=== PATIENT | female | born 1950 | race Caucasian/White ===

== ENCOUNTER 2021-12-19 14:50 | Observation (INO) | payer MEDICARE, OTHER ==
[~2021-12-19 14:50] MED LIST: Sodium Chloride 0.9% 1,000 ML ONE
[2021-12-19] MEDS ORDERED: Sodium Chloride 0.9% 1,000 ML IV ONE (15:00)
[2021-12-19] MEDS ORDERED: Metoprolol Succinate 25 MG Tab.ER PO ONE (16:04)
[2021-12-19] MEDS ORDERED: Aspirin 81 MG Tab.Chew PO ONE (16:25)
[2021-12-19] MEDS: Meropenem 1 GM SDV IVPUSH SCH (17:37)
[2021-12-19] MEDS: Sodium Chloride 0.9% 1,000 ML IV SCH (19:19)
[2021-12-19] MEDS ORDERED: Acetaminophen 325 MG Tab PO PRN (19:52)
[2021-12-19] MEDS ORDERED: Docusate Sodium 100 MG Cap PO PRN (19:52)
[2021-12-20] MEDS: Meropenem 1 GM SDV IVPUSH SCH ×2 (00:18→12:02)
[2021-12-20] MEDS: Sodium Chloride 0.9% 1,000 ML IV SCH (03:08)
[2021-12-20] MEDS ORDERED: Metoprolol Succinate 25 MG Tab.ER PO SCH (08:00)
[2021-12-20] MEDS ORDERED: Aspirin 81 MG Tab.EC PO SCH (08:00)
[2021-12-20] MEDS ORDERED: Citalopram 10 MG Tab PO SCH (08:00)
[2021-12-20] MEDS ORDERED: atorvaSTATin 20 MG Tab PO SCH (08:00)
[2021-12-20] MEDS ORDERED: Metoprolol Succinate 50 MG Tab.ER *PT OWN MED PO SCH ×2 (11:30→20:00)
[2021-12-20] MEDS ORDERED: ESCITALOPRAM 10 MG PO SCH (11:45)
[2021-12-20] MEDS ORDERED: Take Home: Azithromycin 250 MG, 2 Tab Pack PO ONE ×3 (13:44→14:05)
[2021-12-20] MEDS ORDERED: Take Home: Azithromycin 250 MG, 2 Tab Pack ONE (13:45)
[2021-12-20] MEDS ORDERED: ATORVASTATIN 80 MG PO SCH (20:00)
== END 2021-12-20 14:25 | disposition home or self-care (01) ==
LOC: CC.ED 14:50 → UNDOADMOB 16:22 → CC.MS 16:22 → UNDODISOB 12-20 14:25
PROVIDERS: ADMIT Nurse Practitioner Family; ATTEND Nurse Practitioner Family
DX: J18.9 Pneumonia, unspecified organism (principal); R55 Syncope and collapse; R42 Dizziness and giddiness; H92.02 Otalgia, left ear; I10 Essential (primary) hypertension; E78.5 Hyperlipidemia, unspecified; Z88.0 Allergy status to penicillin; Z91.041 Radiographic dye allergy status; Z88.5 Allergy status to narcotic agent; Z20.822 Contact with and (suspected) exposure to COVID-19
CPT/HCPCS: 36415; 71045; 80053; 81001; 83735; 84484; 85025; 85379; 85610; 87040; 93005; 96374; 96376; 99285-25; A9270-GY; G0378; J2185; J7030; U0002

== ENCOUNTER 2022-08-01 13:43 | Emergency (ER) | payer MEDICARE | END 2022-08-01 15:50 | disposition home or self-care (01) | LOC: CC.ED 13:43 | DX: S62.325A Displaced fracture of shaft of fourth metacarpal bone, left hand, initial encounter for closed fracture (principal); Z88.0 Allergy status to penicillin; Z88.5 Allergy status to narcotic agent; Z79.82 Long term (current) use of aspirin; Z95.0 Presence of cardiac pacemaker; Z87.891 Personal history of nicotine dependence; W01.0XXA Fall on same level from slipping, tripping and stumbling without subsequent striking against object, initial encounter; Y92.009 Unspecified place in unspecified non-institutional (private) residence as the place of occurrence of the external cause | CPT/HCPCS: 29125; 73130-LT; 99283 ==